=== PATIENT | female | born 1995 | race Caucasian/White ===

== ENCOUNTER 2020-11-11 19:12 | Inpatient (IN) | payer OTHER ==
[2020-11-11] MEDS ORDERED: Lidocaine 1% 50 ML MDV INJECT PRN (21:04)
[2020-11-11] MEDS ORDERED: Nalbuphine 10 MG/1 ML Vial IVPUSH PRN (21:04)
[2020-11-11] MEDS ORDERED: Misoprostol 200 MCG Tab PO PRN (21:04)
[2020-11-11] MEDS ORDERED: Sodium Chloride 0.9% 10 ML Syringe FLUSH PRN (21:04)
[2020-11-11] MEDS ORDERED: Ondansetron 4 MG/2 ML SDV IVPUSH PRN (21:04)
[2020-11-11] MEDS ORDERED: Tranexamic Acid 1,000 MG in Sodium Chloride 0.9% 100 ML IV PRN (21:04)
[2020-11-11] MEDS ORDERED: Carboprost Tromethamine 250 MCG/1 ML Amp IM PRN (21:04)
[2020-11-11] MEDS ORDERED: Methylergonovine 0.2 MG/1 ML Amp IM PRN (21:04)
[2020-11-11] MEDS ORDERED: Sodium Chloride 0.9% 10 ML SDV IV PRN (21:04)
[2020-11-11] MEDS ORDERED: Sodium Chloride 0.9% 2.5 ML Syringe FLUSH PRN (21:04)
[2020-11-11] MEDS ORDERED: Water For Irrigation,Sterile 1,000 ML Container IRR PRN (21:04)
[2020-11-11] MEDS ORDERED: Oxytocin/0.9 % Sodium Chloride 30 UNIT/500 ML BAG IV SCH (21:15)
[2020-11-11] MEDS: Lactated Ringers 1,000 ML IV SCH (22:00)
[2020-11-11] MEDS: Butorphanol 1 MG/ML SDV IVPUSH PRN (22:08)
[2020-11-11 22:49] LABS: BLOOD UREA NITROGEN,BUN 8 mg/dL (7.0-18.0); CARBON DIOXIDE,CO2 21.7 mmol/L (21.0-32.0); CHLORIDE,CL 100 mmol/L (98-107); GLUCOSE RANDOM 82 mg/dL (74-106); POTASSIUM,K 3.9 mmol/L (3.5-5.1)
[2020-11-11 23:06] LABS: SODIUM,NA 135 mmol/L (136-145)
[2020-11-12] MEDS: Butorphanol 1 MG/ML SDV IVPUSH PRN (00:34)
[2020-11-12] MEDS ORDERED: Ropivacaine HCl/PF 200 ML ONE (00:36)
[2020-11-12] MEDS: Lactated Ringers 1,000 ML IV SCH ×2 (00:43→08:00)
--- NOTE | 2020-11-12 01:26 | PCM.PREANE ---
Preanesthetic Assessment - Anesthesia/Transfusion/Family Hx Anesthesia History: No Prior Anesthesia Family History of Anesthesia Reaction: No - Review of Systems General: No Symptoms Pulmonary: No Symptoms Cardiovascular: No Symptoms Gastrointestinal: No Symptoms Neurological: No Symptoms Other: Reports: None - Physical Assessment Height: 5 ft 5 in Weight: 202 lb ASA Class: 2 Mental Status: Alert & Oriented x3 Airway Class: Mallampati = 3 Dentition: Reports: Normal Dentition ROM/Head Extension: Full Lungs: Clear to Auscultation, Normal Respiratory Effort Cardiovascular: Regular Rate, Regular Rhythm - Lab Values: Laboratory Last Values WBC 14.02 K/uL (4.0-11.0) H 11/11/20 21:56 RBC 4.70 M/uL (4.30-5.90) 11/11/20 21:56 Hgb 13.6 g/dL (12.0-16.0) 11/11/20 21:56 Hct 39.4 % (36.0-46.0) 11/11/20 21:56 MCV 83.8 fL (80.0-98.0) 11/11/20 21:56 MCH 28.9 pg (27.0-32.0) 11/11/20 21:56 MCHC 34.5 g/dL (31.0-37.0) 11/11/20 21:56 RDW Std Deviation 44.7 fl (28.0-62.0) 11/11/20 21:56 RDW Coeff of Roni 15 % (11.0-15.0) 11/11/20 21:56 Plt Count 280 K/uL (150-400) 11/11/20 21:56 MPV 10.10 fL (7.40-12.00) 11/11/20 21:56 Neut % (Auto) 81.3 % (48.0-80.0) H 11/11/20 21:56 Lymph % (Auto) 13.6 % (16.0-40.0) L 11/11/20 21:56 Bennett % (Auto) 4.4 % (0.0-15.0) 11/11/20 21:56 Eos % (Auto) 0.6 % (0.0-7.0) 11/11/20 21:56 Baso % (Auto) 0.1 % (0.0-1.5) 11/11/20 21:56 Neut # (Auto) 11.4 K/uL (1.4-5.7) H 11/11/20 21:56 Lymph # (Auto) 1.9 K/uL (0.6-2.4) 11/11/20 21:56 Bennett # (Auto) 0.6 K/uL (0.0-0.8) 11/11/20 21:56 Eos # (Auto) 0.1 K/uL (0.0-0.7) 11/11/20 21:56 Baso # (Auto) 0.0 K/uL (0.0-0.1) 11/11/20 21:56 Nucleated RBC % 0.0 /100WBC 11/11/20 21:56 Nucleated RBCs # 0 K/uL 11/11/20 21:56 Sodium 135 mmol/L (136-145) L 11/11/20 21:56 Potassium 3.9 mmol/L (3.5-5.1) 11/11/20 21:56 Chloride 100 mmol/L (98-107) 11/11/20 21:56 Carbon Dioxide 21.7 mmol/L (21.0-32.0) 11/11/20 21:56 BUN 8 mg/dL (7.0-18.0) 11/11/20 21:56 Creatinine 0.7 mg/dL (0.6-1.0) 11/11/20 21:56 Est Cr Clr Drug Dosing 111.51 mL/min 11/11/20 21:56 Estimated GFR (MDRD) > 60.0 ml/min 11/11/20 21:56 Glucose 82 mg/dL (74-106) 11/11/20 21:56 Uric Acid 5.0 mg/dL (2.6-7.2) 11/11/20 21:56 Calcium 8.6 mg/dL (8.5-10.1) 11/11/20 21:56 Total Bilirubin 0.3 mg/dL (0.2-1.0) 11/11/20 21:56 AST 28 IU/L (15-37) 11/11/20 21:56 ALT 21 IU/L (14-63) 11/11/20 21:56 Alkaline Phosphatase 177 U/L (46-116) H 11/11/20 21:56 Total Protein 7.1 g/dL (6.4-8.2) 11/11/20 21:56 Albumin 3.0 g/dL (3.4-5.0) L 11/11/20 21:56 Globulin 4.1 g/dL (2.6-4.0) H 11/11/20 21:56 Albumin/Globulin Ratio 0.7 (0.9-1.6) L 11/11/20 21:56 Urine Color YELLOW 11/11/20 21:55 Urine Appearance CLEAR 11/11/20 21:55 Urine pH 7.0 (5.0-8.0) 11/11/20 21:55 Ur Specific [place] 1.010 (1.001-1.035) 11/11/20 21:55 Urine Protein NEGATIVE mg/dL (NEGATIVE) 11/11/20 21:55 Urine Glucose (UA) NEGATIVE mg/dL (NEGATIVE) 11/11/20 21:55 Urine Ketones NEGATIVE mg/dL (NEGATIVE) 11/11/20 21:55 Urine Occult Blood SMALL (NEGATIVE) H 11/11/20 21:55 Urine Nitrite NEGATIVE (NEGATIVE) 11/11/20 21:55 Urine Bilirubin NEGATIVE (NEGATIVE) 11/11/20 21:55 Urine Urobilinogen 0.2 EU/dL (<2.0) 11/11/20 21:55 Ur Leukocyte Esterase NEGATIVE (NEGATIVE) 11/11/20 21:55 Urine RBC 0-1 (0-2/HPF) 11/11/20 21:55 Urine WBC 0-1 (0-5/HPF) 11/11/20 21:55 Ur Epithelial Cells RARE (NONE-FEW) 11/11/20 21:55 Urine Bacteria FEW (NEGATIVE) 11/11/20 21:55 Ur Random Creatinine 43.3 mg/dL 11/11/20 21:55 U Random Total Protein < 6.0 mg/dL (<11.9) 11/11/20 21:55 Protein/Creatinin Ratio TNP 11/11/20 21:55 Membrane Rupture POSITIVE 11/11/20 22:15 SARS-CoV-2 RNA (ROSA) NEGATIVE (NEGATIVE) 11/11/20 22:15 Blood Type B POSITIVE 11/11/20 21:56 Antibody Screen NEGATIVE 11/11/20 21:56 - Allergies Allergies/Adverse Reactions: Allergies Allergy/AdvReac Type Severity Reaction Status Date / Time Penicillins Allergy Hives Verified 01/26/14 14:45 - Blood Blood Available: Yes Product(s) Available: PRBC - Anesthesia Plan Pre-Op Medication Ordered: None - Acknowledgements Anesthesia Type Planned: Epidural Pt an Appropriate Candidate for the Planned Anesthesia: Yes Alternatives and Risks of Anesthesia Discussed w Pt/Guardian: Yes Pt/Guardian Understands and Agrees with Anesthesia Plan: Yes PreAnesthesia Questionnaire - HOME MEDS Home Medications: Home Meds Pnv #30/Iron Carb&Aspg/Fa/Om3 [OB Complete with DHA Softgel] 11/11/20 [History] - CURRENT (IN HOUSE) MEDS Current Meds: Current Medications Butorphanol Tartrate (Butorphanol 1 Mg/Ml Sdv) 1 mg IVPUSH Q1H PRN PRN Reason: Pain (severe 7-10) Last Admin: 11/12/20 00:34 Dose: 1 mg Documented by: Carboprost Tromethamine (Carboprost Tromethamine 250 Mcg/1 Ml Amp) 250 mcg IM ASDIRECTED PRN PRN Reason: Post Hemorrhage Lactated Ringer's (Ringers, Lactated) 1,000 mls @ 150 mls/hr IV ASDIRECTED [facility] Oxytocin/Sodium Chloride (Oxytocin 30 Unit/500 Ml-Ns) 30 unit in 500 mls @ 999 mls/hr IV TITRATE N[facility] Tranexamic Acid 1,000 mg/ (Sodium Chloride) 110 mls @ 660 mls/hr IV ONETIME PRN PRN Reason: Bleeding Lidocaine HCl (Lidocaine 1% 50 Ml Mdv) 50 ml INJECT ONETIME PRN PRN Reason: Laceration repair Methylergonovine Maleate (Methylergonovine 0.2 Mg/1 Ml Amp) 0.2 mg IM ASDIRECTED PRN PRN Reason: Post Hemorrhage Misoprostol (Misoprostol 200 Mcg Tab) 200 mcg PO ONETIME PRN PRN Reason: Post Hemorrhage Nalbuphine HCl (Nalbuphine 10 Mg/1 Ml Vial) 10 mg IVPUSH Q1H PRN PRN Reason: Pain (severe 7-10) Ondansetron HCl (Ondansetron 4 Mg/2 Ml Sdv) 4 mg IVPUSH Q6H PRN PRN Reason: Nausea/Vomiting Sodium Chloride (Sodium Chloride 0.9% 10 Ml Syringe) 10 ml FLUSH ASDIRECTED PRN PRN Reason: Keep Vein Open Sodium Chloride (Sodium Chloride 0.9% 2.5 Ml Syringe) 2.5 ml FLUSH ASDIRECTED PRN PRN Reason: Keep Vein Open Sodium Chloride (Sodium Chloride 0.9% 10 Ml Sdv) 10 ml IV ASDIRECTED PRN PRN Reason: IV Use Sterile Water (Water For Irrigation,Sterile 1,000 Ml Container) 1,000 ml IRR ASDIRECTED PRN PRN Reason: delivery Discontinued Medications Ropivacaine (Naropin 0.2%) Confirm Administered Dose 200 mls @ as directed .ROUTE .Manas [employer]-MED ONE Stop: 11/12/20 00:37 - Pre-Procedure Checklist Attending Provider Aware: Yes Chart Reviewed: Yes Consent Signed: Yes Labs Reviewed: Yes VS/FHR Reviewed: Yes Patient Identification Confirmation Method: Reports: Verbal Patient Pt an Appropriate Candidate for the Planned Anesthesia: Yes Alternatives and Risks of Anesthesia Discussed w Pt/Guardian: Yes - Procedure Procedure Start Date: 11/12/20 Procedure Start Time: 00:[address]: Reports: Blood Pressure, Heart Rate, SPO2 Functional IV: Yes Safety Measures: Reports: Patient Identified, Procedure Verified, Site Verified, Procedure Time Out Patient Position: Reports: Sitting Prep: Reports: Betadine x3, Sterile Drape Local Anesthetic: Reports: Intradermal Wheal w Lidocaine 1% Regional Placement Level: Reports: L3-4 Needle: Reports: 17 g Touhy Approach: Reports: Midline Technique: Reports: MIGUEL Plastic Syringe Parasthesia: Reports: None Fluid Obtained: Reports: None Test Dose Time: 00:45 Test Dose Medication: Reports: Lidocaine 1.5% w Epinephrine 1:200,000 Test Dose Response: Reports: Negative Loading Dose Time: 00:45 Loading Dose Medication: bupivicaine 0.25% 10cc Loading Dose Patient Position: sitting Continuous Infusion Start Time: 00:50 Continuous Infusion Medication: ropivicaine 0.2% Continuous Infusion Rate: 16 Continuous Infusion PCS Bolus Option: 4 Continuous Infusion Lockout Dose (cc/hr): 15 Patient Position Post Placement: Reports: Supline/BOB VS and FHR Monitored in Unit Post Placement: Yes Procedure End Date: 11/12/20 Procedure End Time: 01:40
--- NOTE | 2020-11-12 01:29 | PCM.SN.2 ---
- Free Text/Narrative Note: Pt complaining of severe pain 30 min post epidural. Bolus dose fentanyl 2cc, with 10 cc lido 2%. 20 min later pt wants to redo epidural but is unable to move her legs. encouraged to keep this epidural and be patient.
[2020-11-12] MEDS ORDERED: Bisacodyl 10 MG Supp RECTAL PRN (07:36)
[2020-11-12] MEDS ORDERED: Lanolin 100% Cream 7 GM Tube TOP PRN (07:36)
[2020-11-12] MEDS ORDERED: Ibuprofen 400 MG Tab PO PRN (07:36)
[2020-11-12] MEDS ORDERED: oxyCODONE 5 MG Tab PO PRN (07:36)
[2020-11-12] MEDS ORDERED: Acetaminophen 500 MG Tab PO PRN (07:36)
[2020-11-12] MEDS ORDERED: Benzocaine/Menthol 20%-0.5% Spray 78 GM Cannister TOP PRN (07:36)
--- NOTE | 2020-11-12 07:47 | PCM.DEL ---
L & D Note - General Info Date of Service: 11/12/20 - Delivery Note Labor: Spontaneous Delivery Outcome: Livebirth Delivery Method: Spontaneous Vaginal Delivery-Single Presentation: Left Occiput Anterior (MICHELA) Nuchal Cord: Present Anesthesia Type: Epidural Amniotic Fluid Description: Clear Episiotomy Type: None Laceration: 2nd Degree Suture type: Other (monocryl ) Suture size: 2-0 Placenta: Intact Cord: 3 Vessels Estimated Blood Loss: 300 Resuscitation Needed: No Score 1 min: 8 Score 5 min: 9 Delivery Comments (Free Text/Narrative):: Live male delivered at 602am 8/9 weight 3060g - General Info Date of Service: 11/12/20 - Patient Data Weight - Most Recent: 91.626 kg Lab Results Last 24 Hours: Laboratory Results - last 24 hr 11/11/20 11/11/20 11/11/20 Range/Units 21:55 21:55 21:56 WBC 14.02 H (4.0-11.0) K/uL RBC 4.70 (4.30-5.90) M/uL Hgb 13.6 (12.0-16.0) g/dL Hct 39.4 (36.0-46.0) % MCV 83.8 (80.0-98.0) fL MCH 28.9 (27.0-32.0) pg MCHC 34.5 (31.0-37.0) g/dL RDW Std Deviation 44.7 (28.0-62.0) fl RDW Coeff of Roni 15 (11.0-15.0) % Plt Count 280 (150-400) K/uL MPV 10.10 (7.40-12.00) fL Neut % (Auto) 81.3 H (48.0-80.0) % Lymph % (Auto) 13.6 L (16.0-40.0) % [place] % (Auto) 4.4 (0.0-15.0) % Eos % (Auto) 0.6 (0.0-7.0) % Baso % (Auto) 0.1 (0.0-1.5) % Neut # (Auto) 11.4 H (1.4-5.7) K/uL Lymph # (Auto) 1.9 (0.6-2.4) K/uL [place] # (Auto) 0.6 (0.0-0.8) K/uL Eos # (Auto) 0.1 (0.0-0.7) K/uL Baso # (Auto) 0.0 (0.0-0.1) K/uL Nucleated RBC % 0.0 /100WBC Nucleated RBCs # 0 K/uL Sodium (136-145) mmol/L Potassium (3.5-5.1) mmol/L Chloride (98-107) mmol/L Carbon Dioxide (21.0-32.0) mmol/L BUN (7.0-18.0) mg/dL Creatinine (0.6-1.0) mg/dL Est Cr Clr Drug Dosing mL/min Estimated GFR (MDRD) ml/min Glucose (74-106) mg/dL Uric Acid (2.6-7.2) mg/dL Calcium (8.5-10.1) mg/dL Total Bilirubin (0.2-1.0) mg/dL AST (15-37) IU/L ALT (14-63) IU/L Alkaline Phosphatase (46-116) U/L Total Protein (6.4-8.2) g/dL Albumin (3.4-5.0) g/dL Globulin (2.6-4.0) g/dL Albumin/Globulin Ratio (0.9-1.6) Urine Color YELLOW Urine Appearance CLEAR Urine pH 7.0 (5.0-8.0) Ur Specific [place] 1.010 (1.001-1.035) Urine Protein NEGATIVE (NEGATIVE) mg/dL Urine Glucose (UA) NEGATIVE (NEGATIVE) mg/dL Urine Ketones NEGATIVE (NEGATIVE) mg/dL Urine Occult Blood SMALL H (NEGATIVE) Urine Nitrite NEGATIVE (NEGATIVE) Urine Bilirubin NEGATIVE (NEGATIVE) Urine Urobilinogen 0.2 (<2.0) EU/dL Ur Leukocyte Esterase NEGATIVE (NEGATIVE) Urine RBC 0-1 (0-2/HPF) Urine WBC 0-1 (0-5/HPF) Ur Epithelial Cells RARE (NONE-FEW) Urine Bacteria FEW (NEGATIVE) Ur Random Creatinine 43.3 mg/dL U Random Total Protein < 6.0 (<11.9) mg/dL Protein/Creatinin Ratio TNP Membrane Rupture SARS-CoV-2 RNA (ROSA) (NEGATIVE) Blood Type Antibody Screen 11/11/20 11/11/20 11/11/20 Range/Units 21:56 21:56 22:15 WBC (4.0-11.0) K/uL RBC (4.30-5.90) M/uL Hgb (12.0-16.0) g/dL Hct (36.0-46.0) % MCV (80.0-98.0) fL MCH (27.0-32.0) pg MCHC (31.0-37.0) g/dL RDW Std Deviation (28.0-62.0) fl RDW Coeff of Roni (11.0-15.0) % Plt Count (150-400) K/uL MPV (7.40-12.00) fL Neut % (Auto) (48.0-80.0) % Lymph % (Auto) (16.0-40.0) % [place] % (Auto) (0.0-15.0) % Eos % (Auto) (0.0-7.0) % Baso % (Auto) (0.0-1.5) % Neut # (Auto) (1.4-5.7) K/uL Lymph # (Auto) (0.6-2.4) K/uL [place] # (Auto) (0.0-0.8) K/uL Eos # (Auto) (0.0-0.7) K/uL Baso # (Auto) (0.0-0.1) K/uL Nucleated RBC % /100WBC Nucleated RBCs # K/uL Sodium 135 L (136-145) mmol/L Potassium 3.9 (3.5-5.1) mmol/L Chloride 100 (98-107) mmol/L Carbon Dioxide 21.7 (21.0-32.0) mmol/L BUN 8 (7.0-18.0) mg/dL Creatinine 0.7 (0.6-1.0) mg/dL Est Cr Clr Drug Dosing 111.51 mL/min Estimated GFR (MDRD) > 60.0 ml/min Glucose 82 (74-106) mg/dL Uric Acid 5.0 (2.6-7.2) mg/dL Calcium 8.6 (8.5-10.1) mg/dL Total Bilirubin 0.3 (0.2-1.0) mg/dL AST 28 (15-37) IU/L ALT 21 (14-63) IU/L Alkaline Phosphatase 177 H (46-116) U/L Total Protein 7.1 (6.4-8.2) g/dL Albumin 3.0 L (3.4-5.0) g/dL Globulin 4.1 H (2.6-4.0) g/dL Albumin/Globulin Ratio 0.7 L (0.9-1.6) Urine Color Urine Appearance Urine pH (5.0-8.0) Ur Specific [place] (1.001-1.035) Urine Protein (NEGATIVE) mg/dL Urine Glucose (UA) (NEGATIVE) mg/dL Urine Ketones (NEGATIVE) mg/dL Urine Occult Blood (NEGATIVE) Urine Nitrite (NEGATIVE) Urine Bilirubin (NEGATIVE) Urine Urobilinogen (<2.0) EU/dL Ur Leukocyte Esterase (NEGATIVE) Urine RBC (0-2/HPF) Urine WBC (0-5/HPF) Ur Epithelial Cells (NONE-FEW) Urine Bacteria (NEGATIVE) Ur Random Creatinine mg/dL U Random Total Protein (<11.9) mg/dL Protein/Creatinin Ratio Membrane Rupture POSITIVE SARS-CoV-2 RNA (ROSA) (NEGATIVE) Blood Type B POSITIVE Antibody Screen NEGATIVE 11/11/20 Range/Units 22:15 WBC (4.0-11.0) K/uL RBC (4.30-5.90) M/uL Hgb (12.0-16.0) g/dL Hct (36.0-46.0) % MCV (80.0-98.0) fL MCH (27.0-32.0) pg MCHC (31.0-37.0) g/dL RDW Std Deviation (28.0-62.0) fl RDW Coeff of Roni (11.0-15.0) % Plt Count (150-400) K/uL MPV (7.40-12.00) fL Neut % (Auto) (48.0-80.0) % Lymph % (Auto) (16.0-40.0) % [place] % (Auto) (0.0-15.0) % Eos % (Auto) (0.0-7.0) % Baso % (Auto) (0.0-1.5) % Neut # (Auto) (1.4-5.7) K/uL Lymph # (Auto) (0.6-2.4) K/uL [place] # (Auto) (0.0-0.8) K/uL Eos # (Auto) (0.0-0.7) K/uL Baso # (Auto) (0.0-0.1) K/uL Nucleated RBC % /100WBC Nucleated RBCs # K/uL Sodium (136-145) mmol/L Potassium (3.5-5.1) mmol/L Chloride (98-107) mmol/L Carbon Dioxide (21.0-32.0) mmol/L BUN (7.0-18.0) mg/dL Creatinine (0.6-1.0) mg/dL Est Cr Clr Drug Dosing mL/min Estimated GFR (MDRD) ml/min Glucose (74-106) mg/dL Uric Acid (2.6-7.2) mg/dL Calcium (8.5-10.1) mg/dL Total Bilirubin (0.2-1.0) mg/dL AST (15-37) IU/L ALT (14-63) IU/L Alkaline Phosphatase (46-116) U/L Total Protein (6.4-8.2) g/dL Albumin (3.4-5.0) g/dL Globulin (2.6-4.0) g/dL Albumin/Globulin Ratio (0.9-1.6) Urine Color Urine Appearance Urine pH (5.0-8.0) Ur Specific [place] (1.001-1.035) Urine Protein (NEGATIVE) mg/dL Urine Glucose (UA) (NEGATIVE) mg/dL Urine Ketones (NEGATIVE) mg/dL Urine Occult Blood (NEGATIVE) Urine Nitrite (NEGATIVE) Urine Bilirubin (NEGATIVE) Urine Urobilinogen (<2.0) EU/dL Ur Leukocyte Esterase (NEGATIVE) Urine RBC (0-2/HPF) Urine WBC (0-5/HPF) Ur Epithelial Cells (NONE-FEW) Urine Bacteria (NEGATIVE) Ur Random Creatinine mg/dL U Random Total Protein (<11.9) mg/dL Protein/Creatinin Ratio Membrane Rupture SARS-CoV-2 RNA (ROSA) NEGATIVE (NEGATIVE) Blood Type Antibody Screen Med Orders - Current: Current Medications Acetaminophen (Acetaminophen 500 Mg Tab) 500 mg PO Q4H PRN PRN Reason: Pain (mild 1-3) Acetaminophen (Acetaminophen 500 Mg Tab) 1,000 mg PO Q4H PRN PRN Reason: Pain (mild 1-3) Benzocaine/Menthol (Benzocaine/Menthol 20%-0.5% Ray 78 Gm Cannister) 78 gm TOP ASDIRECTED PRN PRN Reason: Perineal Comfort Measure Bisacodyl (Bisacodyl 10 Mg Supp) 10 mg RECTAL ONETIME PRN PRN Reason: Constipation Butorphanol Tartrate (Butorphanol 1 Mg/Ml Sdv) 1 mg IVPUSH Q1H PRN PRN Reason: Pain (severe 7-10) Last Admin: 11/12/20 00:34 Dose: 1 mg Documented by: Carboprost Tromethamine (Carboprost Tromethamine 250 Mcg/1 Ml Amp) 250 mcg IM ASDIRECTED PRN PRN Reason: Post Hemorrhage Docusate Sodium (Docusate Sodium 100 Mg Cap) 100 mg PO Q12H PRN PRN Reason: Constipation Emollient Ointment (Lanolin 100% Cream 7 Gm Tube) 0 gm TOP ASDIRECTED PRN PRN Reason: Sore Nipples Gentamicin Sulfate (Pharmacy To Dose - Gentamicin) 1 dose .XX ASDIRECTED [facility] Lactated Ringer's (Ringers, Lactated) 1,000 mls @ 150 mls/hr IV ASDIRECTED [facility] Oxytocin/Sodium Chloride (Oxytocin 30 Unit/500 Ml-Ns) 30 unit in 500 mls @ 999 mls/hr IV TITRATE [facility] Tranexamic Acid 1,000 mg/ (Sodium Chloride) 110 mls @ 660 mls/hr IV ONETIME PRN PRN Reason: Bleeding Clindamycin Phosphate 600 mg/ (Premix) 50 mls @ 92.593 mls/hr IV Q8H [facility] Stop: 11/13/20 00:03 Ibuprofen (Ibuprofen 400 Mg Tab) 400 mg PO Q4H PRN PRN Reason: Pain (mild 1-3) Ibuprofen (Ibuprofen 800 Mg Tab) 800 mg PO Q6H PRN PRN Reason: Pain (mild 1-3) Lidocaine HCl (Lidocaine 1% 50 Ml Mdv) 50 ml INJECT ONETIME PRN PRN Reason: Laceration repair Methylergonovine Maleate (Methylergonovine 0.2 Mg/1 Ml Amp) 0.2 mg IM ASDIRECTED PRN PRN Reason: Post Hemorrhage Misoprostol (Misoprostol 200 Mcg Tab) 200 mcg PO ONETIME PRN PRN Reason: Post Hemorrhage Nalbuphine HCl (Nalbuphine 10 Mg/1 Ml Vial) 10 mg IVPUSH Q1H PRN PRN Reason: Pain (severe 7-10) Ondansetron HCl (Ondansetron 4 Mg/2 Ml Sdv) 4 mg IVPUSH Q6H PRN PRN Reason: Nausea/Vomiting Oxycodone HCl (Oxycodone 5 Mg Tab) 5 mg PO Q2H PRN PRN Reason: Pain (severe 7-10) Sodium Chloride (Sodium Chloride 0.9% 10 Ml Syringe) 10 ml FLUSH ASDIRECTED PRN PRN Reason: Keep Vein Open Sodium Chloride (Sodium Chloride 0.9% 2.5 Ml Syringe) 2.5 ml FLUSH ASDIRECTED PRN PRN Reason: Keep Vein Open Sodium Chloride (Sodium Chloride 0.9% 10 Ml Sdv) 10 ml IV ASDIRECTED PRN PRN Reason: IV Use Sterile Water (Water For Irrigation,Sterile 1,000 Ml Container) 1,000 ml IRR ASDIRECTED PRN PRN Reason: delivery Witch Kelly (Witch Kelly Medicated Pads 40/Jar) 1 pad TOP ASDIRECTED PRN PRN Reason: comfort care Discontinued Medications Ropivacaine (Naropin 0.2%) Confirm Administered Dose 200 mls @ as directed .ROUTE .K-MED ONE Stop: 11/12/20 00:37 - Problem List & Annotations (1) Vaginal delivery SNOMED Code(s): 205478285 Code(s): O80 - ENCOUNTER FOR FULL-TERM UNCOMPLICATED DELIVERY Status: Acute Current Visit: Yes - Problem List Review Problem List Initiated/Reviewed/Updated: Yes - My Orders Last 24 Hours: My Active Orders 11/11/20 20:55 Up ad Elida [RC] ASDIRECTED Vaginal Exam [RC] Click to Edit Vital Signs [RC] PER UNIT ROUTINE 11/11/20 21:04 Patient Status [ADT] Routine May Shower [RC] ASDIRECTED Notify Provider [RC] PRN Butorphanol [Stadol] 1 mg IVPUSH Q1H PRN Carboprost Tromethamine [Hemabate DS] 250 mcg IM ASDIRECTED PRN Lidocaine 1% [Xylocaine 1%] 50 ml INJECT ONETIME PRN Methylergonovine [Methergine] 0.2 mg IM ASDIRECTED PRN Nalbuphine [Nubain] 10 mg IVPUSH Q1H PRN Ondansetron [Zofran] 4 mg IVPUSH Q6H PRN Sodium Chloride 0.9% [Normal Saline] 10 ml IV ASDIRECTED PRN Sodium Chloride 0.9% [Saline Flush] 10 ml FLUSH ASDIRECTED PRN Sodium Chloride 0.9% [Saline Flush] 2.5 ml FLUSH ASDIRECTED PRN Tranexamic Acid [Cyklokapron] 1,000 mg Sodium Chloride 0.9% [Normal Saline] 100 ml IV ONETIME Water For Irrigation,Sterile [Sterile Water for Irrigation] 1,000 ml IRR ASDIRECTED PRN miSOPROStoL [Cytotec] 200 mcg PO ONETIME PRN Peripheral IV Insertion Adult [OM.PC] Routine 11/11/20 21:15 Lactated Ringers [Ringers, Lactated] 1,000 ml IV ASDIRECTED Oxytocin/0.9 % Sodium Chloride [Oxytocin 30 Unit/500 ML-NS] 30 unit in 500 ml IV TITRATE 11/11/20 21:56 RPR (SYPHILIS SERO) W/ RFLX [REF] Routine 11/12/20 07:30 Clindamycin Phosphate [Cleocin] 600 mg Sodium Chloride 0.9% [Normal Saline] 50 ml IV Q8H Pharmacy to Dose - Gentamicin 1 dose .XX ASDIRECTED 11/12/20 07:36 Patient Status [ADT] Routine May Shower [RC] ASDIRECTED Up ad Elida [RC] ASDIRECTED Vital Signs [RC] PER UNIT ROUTINE Acetaminophen [Tylenol Extra Strength] 1,000 mg PO Q4H PRN Acetaminophen [Tylenol Extra Strength] 500 mg PO Q4H PRN Benzocaine/Menthol [Dermoplast Pain Relief 20%-0.5% Ray] 78 gm TOP ASDIRECTED PRN Docusate Sodium [Colace] 100 mg PO Q12H PRN Ibuprofen [Motrin] 400 mg PO Q4H PRN Ibuprofen [Motrin] 800 mg PO Q6H PRN Lanolin [Lansinoh HPA] See Dose Instructions TOP ASDIRECTED PRN bisacodyL [Dulcolax] 10 mg RECTAL ONETIME PRN oxyCODONE 5 mg PO Q2H PRN witch Kelly [Tucks] 1 pad TOP ASDIRECTED PRN Assess Lochia [WOMSER] Per Unit Routine Assess Uterine Involution [WOMSER] Per Unit Routine Peripheral IV Discontinue [OM.PC] Routine Resuscitation Status Routine 11/12/20 07:39 BLOOD GAS ARTERIAL UMBILICAL [BG] Routine BLOOD GAS VENOUS UMBILICAL [BG] Routine 11/13/20 05:11 HEMOGLOBIN/HEMATOCRIT,HH [HEME] Timed - Assessment Assessment:: 25yo s/p PPD0, Gestational HTN, Prelabor rupture of membrane Suspected Chorioamnionitis Second degree laceration repaired RH positive , Rubella Immune - Plan Plan:: Routine care Monitor BP is > 160/110 - will start Magnessium Clindamycin 600mg Q8 for 24hrs Gentamicin weight based X 1 dose
[2020-11-12] MEDS: Clindamycin Phosphate in D5W 600 MG in Premix Bag 1 BAG IV SCH ×4 (08:41→16:26)
[2020-11-12] MEDS: Ibuprofen 800 MG Tab PO PRN ×2 (10:35→22:07)
[2020-11-12] MEDS: Witch Hazel Medicated Pads 40/Jar TOP PRN (11:05)
[2020-11-12] MEDS: Docusate Sodium 100 MG Cap PO PRN ×2 (11:05→22:07)
[2020-11-12] MEDS: Acetaminophen 500 MG Tab PO PRN (11:58)
[2020-11-13] MEDS: Clindamycin Phosphate in D5W 600 MG in Premix Bag 1 BAG IV SCH ×2 (00:44)
--- NOTE | 2020-11-13 07:43 | OR ---
SURGEON: KARLA BRANDT DATE OF PROCEDURE: 11/12/2020 PREOPERATIVE DIAGNOSES: A 25-year-old, 1, para 0, at 40 weeks zero days, admitted in for early labor, gestational hypertension, prelabor rupture of membranes. POSTOPERATIVE DIAGNOSES: A 25-year-old, 1, para 0, at 40 weeks zero days, admitted in for early labile gestational hypertension, prelabor rupture of membranes,suspected chorioamnionitis. PROCEDURES: Normal spontaneous vaginal delivery. Repair of second degree laceration ESTIMATED BLOOD LOSS: 300. IV FLUID: Pitocin running. ANESTHESIA: Epidural. NOTES AND FINDINGS: A live male delivered at 6:02 a.m. score 8 and 9. Weight is 3060 g. BRIEF HISTORY ABOUT THE PATIENT: She is 25. G1, P0, 40 weeks 0 days, came in complaining of contractions. She also says she noted she was leaking. AmniSure was done, which was positive. We noted blood pressures of 120s to 140s over 80s to 90s. She denied headache and blurry vision. PIH labs were done, which was normal. Protein to creatinine ratio was also done which was normal. So impression was gestational hypertension. However, the patient was in a lot of pain. She had some episodes of 160s over 90s, but she was asymptomatic. However, after getting the epidural her blood pressures normalized. She came when she was 1 cm dilated. She was observed. She made change on her own. She had a normal labor course. She became fully dilated. With the patient being fully dilated, at that time noted to have tachycardia. At this point, she was encouraged to push. DESCRIPTION OF PROCEDURE: She with good patient effort, she delivered the head subsequently by the anterior and posterior shoulder. There was a nuchal cord which was reduced. The infant was placed on maternal abdomen. The cord was clamped and cut. The placenta was delivered via controlled cord traction. Perineum was inspected and noted to have a second-degree laceration, which was repaired in layers. The patient tolerated the procedure well. All instrument and pad counts were correct x2. DOMINIK / DONI /[id number] [facility]ITALMallika
[2020-11-13] MEDS: Ibuprofen 800 MG Tab PO PRN (08:11)
[2020-11-13] MEDS: Docusate Sodium 100 MG Cap PO PRN (08:11)
--- NOTE | 2020-11-13 12:20 | PCM.PNPP ---
- General Info Date of Service: 11/13/20 Functional Status: Reports: Pain Controlled, Tolerating Diet, Ambulating, Urinating - Review of Systems General: Reports: No Symptoms HEENT: Reports: No Symptoms Pulmonary: Reports: No Symptoms Cardiovascular: Reports: No Symptoms Gastrointestinal: Reports: No Symptoms Genitourinary: Reports: No Symptoms Musculoskeletal: Reports: No Symptoms Skin: Reports: No Symptoms Neurological: Reports: No Symptoms Psychiatric: Reports: No Symptoms - Patient Data Vital Signs - Most Recent: Last Vital Signs Temp 36.1 C 11/13/20 08:00 Pulse 117 H 11/13/20 08:00 Resp 20 11/13/20 08:00 BP 134/90 11/13/20 08:00 Pulse Ox 97 11/13/20 08:00 Weight - Most Recent: 202 lb I&O - Last 24 Hours: Intake & Output 11/12/20 11/13/20 11/13/20 22:59 06:59 14:59 Output Total 1450 Balance -1450 Lab Results - Last 24 Hours: Laboratory Results - last 24 hr 11/13/20 Range/Units 05:43 Hgb 10.9 L (12.0-16.0) g/dL Hct 32.7 L (36.0-46.0) % Med Orders - Current: Current Medications Acetaminophen (Acetaminophen 500 Mg Tab) 500 mg PO Q4H PRN PRN Reason: Pain (mild 1-3) Acetaminophen (Acetaminophen 500 Mg Tab) 1,000 mg PO Q4H PRN PRN Reason: Pain (mild 1-3) Last Admin: 11/12/20 11:58 Dose: 1,000 mg Documented by: Benzocaine/Menthol (Benzocaine/Menthol 20%-0.5% Ralph 78 Gm Cannister) 78 gm TOP ASDIRECTED PRN PRN Reason: Perineal Comfort Measure Last Admin: 11/12/20 11:06 Dose: 1 canister Documented by: Bisacodyl (Bisacodyl 10 Mg Supp) 10 mg RECTAL ONETIME PRN PRN Reason: Constipation Butorphanol Tartrate (Butorphanol 1 Mg/Ml Sdv) 1 mg IVPUSH Q1H PRN PRN Reason: Pain (severe 7-10) Last Admin: 11/12/20 00:34 Dose: 1 mg Documented by: Carboprost Tromethamine (Carboprost Tromethamine 250 Mcg/1 Ml Amp) 250 mcg IM ASDIRECTED PRN PRN Reason: Post Hemorrhage Docusate Sodium (Docusate Sodium 100 Mg Cap) 100 mg PO Q12H PRN PRN Reason: Constipation Last Admin: 11/13/20 08:11 Dose: 100 mg Documented by: Emollient Ointment (Lanolin 100% Cream 7 Gm Tube) 0 gm TOP ASDIRECTED PRN PRN Reason: Sore Nipples Last Admin: 11/12/20 11:06 Dose: 1 tube Documented by: Gentamicin Sulfate (Pharmacy To Dose - Gentamicin) 1 dose .XX ASDIRECTED [facility] Lactated Ringer's (Ringers, Lactated) 1,000 mls @ 150 mls/hr IV ASDIRECTED [facility] Last Admin: 11/12/20 08:00 Dose: 150 mls/hr Documented by: Oxytocin/Sodium Chloride (Oxytocin 30 Unit/500 Ml-Ns) 30 unit in 500 mls @ 999 mls/hr IV TITRATE [facility] Last Admin: 11/12/20 06:03 Dose: 500 mls/hr Documented by: Tranexamic Acid 1,000 mg/ (Sodium Chloride) 110 mls @ 660 mls/hr IV ONETIME PRN PRN Reason: Bleeding Gentamicin Sulfate 140 mg/ (Sodium Chloride) 53.5 mls @ 107 mls/hr IV Q8H [facility] Last Admin: 11/12/20 09:33 Dose: 107 mls/hr Documented by: Ibuprofen (Ibuprofen 400 Mg Tab) 400 mg PO Q4H PRN PRN Reason: Pain (mild 1-3) Ibuprofen (Ibuprofen 800 Mg Tab) 800 mg PO Q6H PRN PRN Reason: Pain (mild 1-3) Last Admin: 11/13/20 08:11 Dose: 800 mg Documented by: Lidocaine HCl (Lidocaine 1% 50 Ml Mdv) 50 ml INJECT ONETIME PRN PRN Reason: Laceration repair Methylergonovine Maleate (Methylergonovine 0.2 Mg/1 Ml Amp) 0.2 mg IM ASDIRECTED PRN PRN Reason: Post Hemorrhage Misoprostol (Misoprostol 200 Mcg Tab) 200 mcg PO ONETIME PRN PRN Reason: Post Hemorrhage Nalbuphine HCl (Nalbuphine 10 Mg/1 Ml Vial) 10 mg IVPUSH Q1H PRN PRN Reason: Pain (severe 7-10) Ondansetron HCl (Ondansetron 4 Mg/2 Ml Sdv) 4 mg IVPUSH Q6H PRN PRN Reason: Nausea/Vomiting Oxycodone HCl (Oxycodone 5 Mg Tab) 5 mg PO Q2H PRN PRN Reason: Pain (severe 7-10) Last Admin: 11/12/20 23:16 Dose: 5 mg Documented by: Sodium Chloride (Sodium Chloride 0.9% 10 Ml Syringe) 10 ml FLUSH ASDIRECTED PRN PRN Reason: Keep Vein Open Sodium Chloride (Sodium Chloride 0.9% 2.5 Ml Syringe) 2.5 ml FLUSH ASDIRECTED PRN PRN Reason: Keep Vein Open Sodium Chloride (Sodium Chloride 0.9% 10 Ml Sdv) 10 ml IV ASDIRECTED PRN PRN Reason: IV Use Sterile Water (Water For Irrigation,Sterile 1,000 Ml Container) 1,000 ml IRR ASDIRECTED PRN PRN Reason: delivery Witch Kelly (Witch Kelly Medicated Pads 40/Jar) 1 pad TOP ASDIRECTED PRN PRN Reason: comfort care Last Admin: 11/12/20 11:05 Dose: 1 container Documented by: Discontinued Medications Ropivacaine (Naropin 0.2%) Confirm Administered Dose 200 mls @ as directed .ROUTE .STK-MED ONE Stop: 11/12/20 00:37 Last Admin: 11/13/20 00:27 Dose: Not Given Documented by: Clindamycin Phosphate 600 mg/ (Premix) 50 mls @ 92.593 mls/hr IV Q8H [facility] Stop: 11/13/20 00:03 Last Admin: 11/13/20 00:44 Dose: 92.593 mls/hr Documented by: - Interaction Disposition, : at Bedside Infant Interaction: Holding Infant Infant Feeding: Breastfed Infant; Nursed Well Support Person: Significant Other - Recovery Exam Fundal Tone: Firm Fundal Level: 1 Fingerbreadths Below Umbilicus Fundal Placement: Midline Lochia Amount: Scant Lochia Color: Rubra/Red Perineum Description: Intact, Minimal Bruising/Swelling, Other (see below) Other Perinuem Description: 2nd degree laceration Episiotomy/Laceration: Approximated Bladder Status: Indwelling Catheter in Place Urinary Elimination: Indwelling Catheter Other Urinary Elimination, : due to void - Exam Quality Assessment: Supplemental Oxygen General: Alert, Oriented, Cooperative, No Acute Distress HEENT: Pupils Equal, Pupils Reactive Neck: Supple, Trachea Midline, No JVD Lungs: Normal Respiratory Effort GI/Abdominal Exam: Soft, Non-Tender, No Distention Extremities: Normal Inspection, Normal Range of Motion, Non-Tender, No Pedal Edema Skin: Warm, Dry, Intact Wound/Incisions: Healing Well Neurological: No New Focal Deficit Psy/Mental Status: Alert, Normal Affect, Normal Mood - Problem List Review Problem List Initiated/Reviewed/Updated: Yes - Assessment Assessment:: 25yo s/p PPD1, Gestational HTN, Prelabor rupture of membrane. Urinary retention with chavez in place - Plan Plan:: BP has been mildly elevated this AM, 130-140s/80-90s. Asymptomatic. Will monitor closely. Afebrile currently, s/p 24hr of antibiotics Urinary retention yesterday, will remove chavez catheter this AM Hgb stable, bleeding light, advised to continue PNV Plan for discharge home tomorrow
[2020-11-13] MEDS: Acetaminophen 500 MG Tab PO PRN (15:53)
[2020-11-13] MEDS: Witch Hazel Medicated Pads 40/Jar TOP PRN (15:55)
== END 2020-11-13 19:38 | disposition home or self-care (01) | DRG 807 ==
LOC: MW.OB 19:12 → MW.OBCHECK 19:12 → MW.OB 21:04 → MW.OBCHECK 21:04 → OBSVTOIN 11-12 06:02 → MW.OB 11-12 11:42
PROVIDERS: ADMIT Obstetrics & Gynecology; ATTEND Obstetrics & Gynecology
PROC: 10E0XZZ Delivery of Products of Conception, External Approach (ICD-10-PCS; principal; 2020-11-12)
PROC: 0KQM0ZZ Repair Perineum Muscle, Open Approach (ICD-10-PCS; 2020-11-12)
PROC: 10907ZC Drainage of Amniotic Fluid, Therapeutic from Products of Conception, Via Natural or Artificial Opening (ICD-10-PCS; 2020-11-12)
PROC: 3E0R3BZ Introduction of Anesthetic Agent into Spinal Canal, Percutaneous Approach (ICD-10-PCS; 2020-11-12)
DX: O13.4 Gestational [pregnancy-induced] hypertension without significant proteinuria, complicating childbirth (principal); Z37.0 Single live birth; Z3A.39 39 weeks gestation of pregnancy; O69.81X0 Labor and delivery complicated by cord around neck, without compression, not applicable or unspecified; O70.1 Second degree perineal laceration during delivery; Z20.822 Contact with and (suspected) exposure to COVID-19
CPT/HCPCS: 36415; 51701; 51702; 59025; 59409; 80053; 81001; 82570; 82803; 84112; 84156; 84550; 85014; 85018; 85025; 86592; 86850; 86900; 86901; A9270-GY; J0595; J1580; J2590; J2795; J3490; J7120; U0002

== ENCOUNTER 2023-06-14 00:45 | Inpatient (IN) | payer BC ==
[2023-06-14] MEDS ORDERED: Butorphanol 2 MG/ML SDV IVPUSH PRN (01:00)
[2023-06-14] MEDS ORDERED: Ondansetron 4 MG/2 ML SDV IVPUSH PRN (01:00)
[2023-06-14] MEDS ORDERED: Methylergonovine 0.2 MG/1 ML Amp IM PRN (01:00)
[2023-06-14] MEDS ORDERED: Carboprost Tromethamine 250 MCG/1 mL Vial IM PRN (01:00)
[2023-06-14] MEDS ORDERED: Tranexamic Acid IN NACL,ISO-OS 1,000 MG in Premix Bag 1 BAG IV PRN (01:00)
[2023-06-14] MEDS ORDERED: Lidocaine 1% 50 ML MDV INJECT PRN (01:00)
[2023-06-14] MEDS ORDERED: Sodium Chloride 0.9% 2.5 ML Syringe FLUSH PRN (01:00)
[2023-06-14] MEDS ORDERED: Misoprostol 200 MCG Tab PO PRN (01:00)
[2023-06-14] MEDS ORDERED: Sodium Chloride 0.9% 10 ML Syringe FLUSH PRN (01:00)
[2023-06-14] MEDS ORDERED: Sodium Chloride 0.9% 20 ML SDV IV PRN (01:00)
[2023-06-14] MEDS ORDERED: Water For Irrigation,Sterile 1,000 ML Container IRR PRN (01:00)
[2023-06-14] MEDS: Lactated Ringers 1,000 ML IV SCH (01:15)
[2023-06-14 01:26] LABS: HEMATOCRIT 38.7 % (37.0-47.0); HEMOGLOBIN 13.1 g/dL (12.0-16.0); MEAN CORPUSCULAR HEMOGLOBIN 28.5 pg (28.0-32.0); MEAN CORPUSCULAR HGB CONC 33.9 g/dL (32.0-36.0); MEAN CORPUSCULAR VOLUME 84.3 fL (83.0-99.0); MEAN PLATELET VOLUME 9.6 fL (9.4-12.3); PLATELET COUNT,PLT 292 K/uL (150-400); RED BLOOD CELL COUNT 4.59 M/uL (4.10-5.30); WHITE BLOOD CELL COUNT,WBC 8.93 K/uL (3.9-11.3)
[2023-06-14] MEDS ORDERED: Phenylephrine HCl 0.5 MG/5 ML AMP ONE (01:38)
[2023-06-14] MEDS ORDERED: Bupivacaine 0.5% 10 ML SDV ONE (01:38)
[2023-06-14] MEDS ORDERED: Ropivacaine HCl/PF 200 ML ONE (01:39)
[2023-06-14] MEDS: Ropivacaine HCl/PF 400 MG in Premix Bag 1 BAG EPIDUR SCH (01:49)
[2023-06-14] MEDS ORDERED: ePHEDrine 50 MG/ML SDV IVPUSH PRN ×2 (01:56)
[2023-06-14] MEDS ORDERED: Phenylephrine HCl 0.5 MG/5 ML AMP IVPUSH PRN (01:56)
[2023-06-14] MEDS: Oxytocin/0.9 % Sodium Chloride 30 UNIT/500 ML BAG IV SCH (02:17)
[2023-06-14] MEDS ORDERED: oxyCODONE 5 MG Tab PO PRN (02:39)
[2023-06-14 03:51] LABS: PH,UMBILICAL ARTERIAL 7.369 (7.18-7.38); PH,UMBILICAL VENOUS 7.352 (7.25-7.45)
[2023-06-14] MEDS: Witch Hazel Medicated Pads 40/Jar TOP PRN (04:08)
[2023-06-14] MEDS: Benzocaine/Menthol 20%-0.5% Spray 78 GM Cannister TOP PRN (04:08)
[2023-06-14] MEDS: Lanolin 100% Cream 7 GM Tube TOP PRN (04:09)
[2023-06-14] MEDS: Acetaminophen 500 MG Tab PO PRN (05:21)
[2023-06-14] MEDS: Ibuprofen 800 MG Tab PO PRN (06:30)
[2023-06-14 15:20] LABS: HEMATOCRIT 32.5 % (37.0-47.0); HEMOGLOBIN 10.9 g/dL (12.0-16.0)
[2023-06-14] MEDS: Docusate Sodium 100 MG Cap PO PRN (20:45)
== END 2023-06-15 12:45 | disposition home or self-care (01) | DRG 560 ==
LOC: MW.OBCHECK 00:45 → MW.OB 00:46 → MW.OBCHECK 01:01 → OBSVTOIN 02:17 → MW.OB 05:20
PROVIDERS: ADMIT Obstetrics & Gynecology; ATTEND Obstetrics & Gynecology
PROC: 10E0XZZ Delivery of Products of Conception, External Approach (ICD-10-PCS; principal; 2023-06-14)
PROC: 0KQM0ZZ Repair Perineum Muscle, Open Approach (ICD-10-PCS; 2023-06-14)
PROC: 3E0R3BZ Introduction of Anesthetic Agent into Spinal Canal, Percutaneous Approach (ICD-10-PCS; 2023-06-14)
PROC: 00HU33Z Insertion of Infusion Device into Spinal Canal, Percutaneous Approach (ICD-10-PCS; 2023-06-14)
DX: O70.1 Second degree perineal laceration during delivery (principal); Z37.0 Single live birth; O69.81X0 Labor and delivery complicated by cord around neck, without compression, not applicable or unspecified; Z3A.39 39 weeks gestation of pregnancy
CPT/HCPCS: 36415; 59025; 59409; 82803; 85014; 85018; 85027; 86592; 86850; 86900; 86901; A9270-GY; J0665; J2371; J2590; J2795; J7120